=== PATIENT | male | born 1940 | race Caucasian/White ===

== ENCOUNTER 2018-09-22 05:44 | Day surgery (SDC) | payer MEDICARE, MEDICAID ==
[2018-09-22] MEDS ORDERED: TROP 1%/CYCLOPEN 1%/PHENYL 2% DROPS OPHTH ONE (05:45)
[2018-09-22] MEDS ORDERED: MIDAZOLAM INJ 2 MG/2 ML VIAL ONE ×2 (06:48→13:37)
[2018-09-22] MEDS ORDERED: PROPARACAINE 0.5% OPHTH SOL 15 ML BTTL LEFT_EYE ONE (13:42)
[2018-09-22] MEDS ORDERED: TOBRAMYCIN SULF 0.3 % OPHT SOL 1 DROP LEFT_EYE ONE ×2 (13:50→14:12)
[2018-09-22] MEDS ORDERED: LIDOCAINE 1% 2 ML VIAL INJ ONE ×2 (13:50→13:58)
[2018-09-22] MEDS ORDERED: DEXAMETHASONE 0.1% OPHTH SOL 1 DROP LEFT_EYE ONE ×2 (13:50→14:12)
[2018-09-22] MEDS ORDERED: BRIMONIDINE 0.2% OPHTH DROPS LEFT_EYE ONE ×2 (13:51→14:12)
== END 2018-09-22 14:37 | disposition home or self-care (01) ==
LOC: AMB 05:44
PROVIDERS: ATTEND Ophthalmology
DX: H25.9 Unspecified age-related cataract (principal); J44.9 Chronic obstructive pulmonary disease, unspecified; F17.200 Nicotine dependence, unspecified, uncomplicated; Z79.899 Other long term (current) drug therapy
CPT/HCPCS: 00142; 66984; J2250

== ENCOUNTER 2018-10-06 05:43 | Day surgery (SDC) | payer MEDICARE, MEDICAID ==
[2018-10-06] MEDS ORDERED: PROPARACAINE 0.5% OPHTH SOL 15 ML BTTL ONE (06:00)
[2018-10-06] MEDS ORDERED: TROP 1%/CYCLOPEN 1%/PHENYL 2% DROPS ONE (06:00)
[2018-10-06] MEDS ORDERED: MIDAZOLAM INJ 2 MG/2 ML VIAL ONE ×2 (06:43→13:22)
[2018-10-06] MEDS ORDERED: PROPARACAINE 0.5% OPHTH SOL 15 ML BTTL RIGHT_EYE ONE (13:30)
[2018-10-06] MEDS ORDERED: LIDOCAINE 1% 2 ML VIAL INJ ONE (13:40)
[2018-10-06] MEDS ORDERED: BRIMONIDINE 0.2% OPHTH DROPS RIGHT_EYE ONE ×2 (13:41→13:58)
[2018-10-06] MEDS ORDERED: DEXAMETHASONE 0.1% OPHTH SOL 1 DROP RIGHT_EYE ONE ×2 (13:41→13:58)
[2018-10-06] MEDS ORDERED: TOBRAMYCIN SULF 0.3 % OPHT SOL 1 DROP RIGHT_EYE ONE ×2 (13:41→13:58)
== END 2018-10-06 14:35 | disposition home or self-care (01) ==
LOC: AMB 05:43
PROVIDERS: ATTEND Ophthalmology
DX: H25.11 Age-related nuclear cataract, right eye (principal); J44.9 Chronic obstructive pulmonary disease, unspecified; F17.200 Nicotine dependence, unspecified, uncomplicated; Z79.899 Other long term (current) drug therapy
CPT/HCPCS: 00142; 66984; J2250